=== PATIENT | female | born 1980 | race Caucasian/White ===

== ENCOUNTER 2025-04-01 10:04 | Emergency (ER) | payer MEDICAID ==
[~2025-04-01] VITALS: Ht 157.5 cm; Wt 70.0 kg
[2025-04-01 10:14] VITALS: O2SAT 96
[2025-04-01] MEDS ORDERED: DIPHENHYDRAMINE 25MG CAPSULE PO ONE (11:00)
[2025-04-01] MEDS ORDERED: KETOROLAC 15MG/ML VIAL IV ONE (11:00)
[2025-04-01] MEDS: DIPHENHYDRAMINE 25MG CAPSULE PO SCH (11:15)
[2025-04-01] MEDS: KETOROLAC 15MG/ML VIAL IV SCH (11:15)
[2025-04-01] MEDS: PROCHLORPERAZINE MALEATE 10MG TABLET PO ONE (11:30)
[2025-04-01] MEDS ORDERED: IBUP-2029 MT (12:08)
[2025-04-01 12:18] VITALS: BP 140/89; PULSE 72; RESP 17; TEMP 36.4; O2SAT 98
== END 2025-04-01 12:20 | disposition home or self-care (01) ==
LOC: ER 10:04
DX: R51.9 Headache, unspecified (principal); I10 Essential (primary) hypertension; Z98.890 Other specified postprocedural states
CPT/HCPCS: 99282; 81025; J1885; Q0163; Q0164